=== PATIENT | male | born 1950 | race Hispanic/Latino ===

== ENCOUNTER 2017-12-13 14:13 | Outpatient (CLI) | payer OTHER ==
--- NOTE | 2017-12-13 16:42 | Magnetic Resonance Report ---
FINAL REPORT EXAM: MR CERVICAL SPINE WO CON HISTORY: SPINAL INJURIES TECHNIQUE: T1 and T2 weighted sagittal and T2 weighted axial images of the cervical spine were obtained. Comparison: None FINDINGS: Bony alignment is normal. The vertebral heights are maintained. There is loss of height of the C4-C5, C5-C6 and C6-C7 discs with associated degenerative endplate change. The degenerative disc and endplate change is most marked at the C5-C6 level. There is multiple level canal and foraminal stenosis secondary to spondylitic change. The cervical cord is normal in size and signal. The paraspinous soft tissues are unremarkable. C2-C3: [id number] right foraminal stenosis, uncovertebral degenerative change, degenerative facet change. C3-C4: Mild canal stenosis, moderate to marked foraminal stenosis, endplate osteophyte/disc complex formation, uncovertebral degenerative change, degenerative facet change. C4-C5: Mild canal stenosis, moderate to marked foraminal stenosis, endplate osteophyte/disc complex formation, degenerative facet change. C5-C6: Mild canal stenosis, marked bilateral foraminal stenosis, endplate osteophyte/disc complex formation, uncovertebral degenerative change, degenerative facet change. C6-C7: Mild canal stenosis, moderate to marked foraminal stenosis, right greater than left, endplate osteophyte/disc complex formation, uncovertebral degenerative change, degenerative facet change. C7-T1: Unremarkable. IMPRESSION: 1. 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
== END 2017-12-13 14:14 | disposition home or self-care (01) ==
LOC: MRI 14:13
PROVIDERS: ATTEND Internal Medicine
DX: M47.892 Other spondylosis, cervical region (principal); M48.02 Spinal stenosis, cervical region; Z88.2 Allergy status to sulfonamides; Z88.1 Allergy status to other antibiotic agents
CPT/HCPCS: 72141